=== PATIENT | female | born 1995 | race African-American/Black ===

== ENCOUNTER 2022-11-04 19:34 | Emergency (ER) | payer OTHER ==
[~2022-11-04] VITALS: Ht 165.1 cm; Wt 69.1 kg
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
[2022-11-04] MEDS ORDERED: HALOPERIDOL LACTATE INJ 5 MG/ML VIAL ONE (20:58)
[2022-11-04] MEDS ORDERED: diphenhydrAMINE HCL 50 MG/ML VIAL ONE (20:59)
[2022-11-04] MEDS ORDERED: LORAZEPAM INJ 2 MG/ML VIAL ONE (20:59)
[2022-11-04] MEDS ORDERED: HALOPERIDOL LACTATE INJ 5 MG/ML VIAL IM ONE (21:00)
[2022-11-04] MEDS ORDERED: IV NS 0.9% 1,000 ML BAG IV ONE (21:00)
[2022-11-04] MEDS ORDERED: diphenhydrAMINE HCL 50 MG/ML VIAL IM ONE (21:00)
[2022-11-04] MEDS ORDERED: LORAZEPAM INJ 2 MG/ML VIAL IM ONE (21:00)
[2022-11-04 21:26] LABS: BASOPHILS % (AUTO) 0.4 % (0.0-2.0); EOSINOPHILS % (AUTO) 3.1 % (0.0-6.0); HEMATOCRIT 42 % (33-45); HEMOGLOBIN 13.7 g/dL (11.5-14.8); LYMPHOCYTES # (AUTO) 1.9 K/uL (0.8-4.8); MEAN CORPUSCULAR HGB CONC 33 g/dl (31.0-36.0); MEAN CORPUSCULAR VOLUME 94 fL (82-100); MONOCYTES # (AUTO) 0.9 K/uL (0.1-1.30); MONOCYTES % (AUTO) 10.2 % (2.0-12.0); NEUTROPHILS # (AUTO) 5.9 K/uL (1.8-8.9); NEUTROPHILS % (AUTO) 65.3 % (43.0-81.0); PLATELET COUNT (AUTO) 232 K/uL (150-450); RED BLOOD CELL COUNT(AUTO) 4.46 MIL/uL (4.0-5.2); WHITE BLOOD COUNT (AUTO) 9.1 K/uL (4.3-11.0)
[2022-11-04 21:51] LABS: BILIRUBIN,URINE NEGATIVE (NEGATIVE); COLOR,URINE YELLOW (YELLOW); LEUKOCYTE ESTERASE ,URINE 2+ (NEGATIVE); NITRITE, URINE POSITIVE (NEGATIVE); PH,URINE 6.5 (5.0-8.0); PROTEIN,URINE NEGATIVE (NEGATIVE); UGLUCOSE NEGATIVE (NEGATIVE)
[2022-11-04 21:57] LABS: BACTERIA,URINE 3+ /HPF (None Seen); RBC,URINE 0-2 /HPF (0-2); WBC,URINE 21-50 /HPF (0-3)
--- NOTE | 2022-11-04 22:00 | NUR ---
20GA TO RT AC ESTABLISHED
--- NOTE | 2022-11-04 22:01 | NUR ---
BLOOD WORK COLLECTED AND SENT TO LAB
--- NOTE | 2022-11-04 22:38 | NUR ---
ANITA MAMI - BROTHER [phone]
[2022-11-04] MEDS ORDERED: CEFTRIAXONE 1 G VIAL IM ONE (23:00)
[2022-11-04] MEDS ORDERED: CEFTRIAXONE 1GM BAG (ER ONLY) 50 ML IV ONE (23:00)
[2022-11-04 23:02] LABS: CHLORIDE 103 mmol/L (98-107); POTASSIUM 3.9 mmol/L (3.5-5.1); SODIUM SERUM 135 mmol/L (136-145)
[2022-11-04 23:03] LABS: ALBUMIN 3.9 g/dL (3.4-5.0); ALKALINE PHOSPHATASE 111 U/L (46-116); CALCIUM, SERUM 9.2 mg/dL (8.5-10.1); CARBON DIOXIDE 21 mmol/L (21-32); CREATININE 0.9 mg/dL (0.6-1.3); GLUCOSE 102 mg/dL (74-106)
[2022-11-04 23:04] LABS: ALCOHOL, BLOOD < 3 mg/dL (0-0)
[2022-11-05 00:02] LABS: ASPARTATE AMINOTRANSFERASE 15 U/L (15-37); BILIRUBIN,DIRECT 0.1 mg/dL (0.0-0.2); BILIRUBIN,TOTAL 0.3 mg/dL (0.2-1.0); UREA NITROGEN, BLOOD 10 mg/dL (7-18)
[2022-11-05 00:03] LABS: ALANINE AMINOTRANSFERASE 30 U/L (12-78)
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
--- NOTE | 2022-11-05 03:35 | NUR ---
COVID SWAB DONE AND SENT TO LAB
--- NOTE | 2022-11-05 07:50 | NUR ---
Patient AOx4, sleeping, easily aroused, no signs of distress or discomfort. Discussed plan of care, patient verbalized agreement. All safety precautions taken.
--- NOTE | 2022-11-05 08:43 | NUR ---
SUPERVISOR RESPIRATORY AT BED SIDE
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
--- NOTE | 2022-11-05 13:50 | NUR ---
CALLED [facility] AND SET UP S TRANSPORT ETA 1428
[2022-11-05 14:50] VITALS: BP 118/70
== END 2022-11-05 14:50 | disposition home or self-care (01) ==
LOC: ER 19:50
DX: T20.16XA Burn of first degree of forehead and cheek, initial encounter (principal); F15.10 Other stimulant abuse, uncomplicated; F20.9 Schizophrenia, unspecified; Z20.822 Contact with and (suspected) exposure to COVID-19; X08.8XXA Exposure to other specified smoke, fire and flames, initial encounter; Y93.89 Activity, other specified; Y92.89 Other specified places as the place of occurrence of the external cause; Y99.8 Other external cause status
CPT/HCPCS: 99285; 96372; 96365; 96361; 93005; 71045; 85025; 80048; 87086; 80076; 84703; 81001; 36415; 80143; 80320; 80307; 87426; J2060; J1200; J1630; J0696; C9803; G0480; J7030

== ENCOUNTER 2022-11-27 09:39 | Emergency (ER) | payer OTHER ==
[~2022-11-27] VITALS: Ht 165.1 cm; Wt 70.8 kg
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
[2022-11-27] MEDS ORDERED: LORAZEPAM INJ 2 MG/ML VIAL IVP ONE (10:00)
[2022-11-27] MEDS ORDERED: diphenhydrAMINE HCL 50 MG/ML VIAL IM ONE (10:00)
[2022-11-27] MEDS ORDERED: HALOPERIDOL LACTATE INJ 5 MG/ML VIAL IM ONE (10:00)
[2022-11-27] MEDS ORDERED: HALOPERIDOL LACTATE INJ 5 MG/ML VIAL ONE (10:09)
[2022-11-27] MEDS ORDERED: diphenhydrAMINE HCL 50 MG/ML VIAL ONE (10:09)
[2022-11-27] MEDS ORDERED: LORAZEPAM INJ 2 MG/ML VIAL ONE (10:10)
--- NOTE | 2022-11-27 10:10 | NUR ---
REFUSES TO GIVE URINE SPECIMEN AT THIS TIME. WILL CONTINUE ENCOURAGING THE PATIENT.
[2022-11-27 10:34] LABS: CARBON DIOXIDE 23 mmol/L (21-32); CHLORIDE 105 mmol/L (98-107); CREATININE 0.7 mg/dL (0.6-1.3); GLUCOSE 102 mg/dL (74-106); POTASSIUM 3.4 mmol/L (3.5-5.1); SODIUM SERUM 139 mmol/L (136-145); UREA NITROGEN, BLOOD 3 mg/dL (7-18)
[2022-11-27 10:46] LABS: ALANINE AMINOTRANSFERASE 24 U/L (12-78); ALBUMIN 3.8 g/dL (3.4-5.0); ALKALINE PHOSPHATASE 99 U/L (46-116); ASPARTATE AMINOTRANSFERASE 8 U/L (15-37); BILIRUBIN,DIRECT 0.1 mg/dL (0.0-0.2); BILIRUBIN,TOTAL 0.5 mg/dL (0.2-1.0); TOTAL PROTEIN, SERUM 7.6 g/dL (6.4-8.2)
[2022-11-27 10:48] LABS: ALCOHOL, BLOOD < 3 mg/dL (0-10)
--- NOTE | 2022-11-27 11:15 | NUR ---
urine collected and sent to the lab
[2022-11-27 11:32] LABS: BASOPHILS % (AUTO) 0.4 % (0.0-2.0); EOSINOPHILS % (AUTO) 2.8 % (0.0-6.0); HEMATOCRIT 39 % (33-45); HEMOGLOBIN 12.9 g/dL (11.5-14.8); LYMPHOCYTES # (AUTO) 1.7 K/uL (0.8-4.8); LYMPHOCYTES % (AUTO) 29.3 % (20.0-44.0); MEAN CORPUSCULAR HGB CONC 33 g/dl (31.0-36.0); MEAN CORPUSCULAR VOLUME 94 fL (82-100); MONOCYTES # (AUTO) 0.6 K/uL (0.1-1.30); MONOCYTES % (AUTO) 9.5 % (2.0-12.0); NEUTROPHILS # (AUTO) 3.4 K/uL (1.8-8.9); PLATELET COUNT (AUTO) 236 K/uL (150-450); RED BLOOD CELL COUNT(AUTO) 4.14 MIL/uL (4.0-5.2); WHITE BLOOD COUNT (AUTO) 5.9 K/uL (4.3-11.0)
[2022-11-27 11:51] LABS: BILIRUBIN,URINE NEGATIVE (NEGATIVE); COLOR,URINE YELLOW (YELLOW); LEUKOCYTE ESTERASE ,URINE 1+ (NEGATIVE); NITRITE, URINE POSITIVE (NEGATIVE); PH,URINE 7.5 (5.0-8.0); PROTEIN,URINE NEGATIVE (NEGATIVE); UGLUCOSE NEGATIVE (NEGATIVE)
[2022-11-27 12:08] LABS: BACTERIA,URINE Many /HPF (None Seen); RBC,URINE NONE SEEN /HPF (0-2); SQUAMOUS EPITHELIAL CELL,UR Few /HPF (None Seen); WBC,URINE 0-2 /HPF (0-3)
--- NOTE | 2022-11-27 12:24 | NUR ---
Facility Referrals: SW sent referrals: [facility] [address] [facility] [address]; Unit TEL: [phone] Intake . [facility] TEL: [phone] fax: [phone]. [facility] tel:[phone] FAX:[phone]; [phone]. [facility] FAX: [phone] TEL:[phone]
--- NOTE | 2022-11-27 14:41 | NUR ---
ACCEPTED AT [facility] [phone]. CALL IN NEXT [address] HARPER
--- NOTE | 2022-11-27 14:42 | NUR ---
FACILITY CONTACT: VIDAL RECEIVED A CALL FROM PAIGE MARTINEZ FROM [facility] WHO STATED THAT PT IS ACCEPTED AND TO CALL UNIT NUMBER [phone] FOR REPORT. SHE REPORTED TO CALL WITHIN 20 MINUTES. PT WILL BE UNDER THE CARE OF DR. HARPER. [facility] ([phone]).
--- NOTE | 2022-11-27 15:30 | NUR ---
TRIED TO GIVE REPORT TO RECEIVING NURSE IN [facility] BUT WAS PUT ON HOLD FOR 10MIN.
--- NOTE | 2022-11-27 16:08 | NUR ---
ARRANGED [facility], ETA 1739
[2022-11-27 16:12] VITALS: BP 126/91
--- NOTE | 2022-11-27 16:13 | NUR ---
REPORT GIVEN TO NURSE SORIANO FOR LORA FROM [facility]
--- NOTE | 2022-11-27 17:02 | NUR ---
[facility] TRAN[facility]ORT ARRIVED
--- NOTE | 2022-11-27 17:07 | NUR ---
REPORT GIVEN TO AMBULANCE STAFF
--- NOTE | 2022-11-27 17:25 | NUR ---
THE PATIENT IS TRANSFERED TO [facility] IN STABLE CONDITION VIA ARRANGED TRANSPO.
== END 2022-11-27 17:26 ==
LOC: ER 09:51
DX: Z04.6 Encounter for general psychiatric examination, requested by authority (principal); R45.1 Restlessness and agitation; F20.9 Schizophrenia, unspecified
CPT/HCPCS: 99285; 96372 ×2; 85025; 80048; 87086; 80076; 84703; 81001; 36415; 80143; 80320; 80307; J2060; J1200; J1630; G0480